=== PATIENT | female | born 1955 | race Two or more races ===

== ENCOUNTER 2019-09-20 10:46 | Emergency (ER) | payer BC ==
[~2019-09-20] VITALS: Ht 160 cm; Wt 55.0 kg
[2019-09-20] MEDS ORDERED: IV NORMAL SALINE 1000ML BAG 1,000 ML IV SCH (11:29)
[2019-09-20] MEDS ORDERED: ONDANSETRON PF 4 MG/2 ML VIAL. IVP ONE (11:30)
[2019-09-20] MEDS ORDERED: FAMOTIDINE 20 MG/2 ML VIAL IVP ONE (11:30)
--- NOTE | 2019-09-20 11:32 | PHYS DOC ---
General Adult EDM: Chief Complaint: FLANK PAIN HPI: HPI: Patient is a 63 year old Israeli-speaking female with history of diabetes mellitus who presents with complaining of left flank pain. History was taken via translating line. Patient complaining of left flank pain for the last 8 days with radiation to left side of abdomen with nausea and some episodes of vomiting without fever and chills, chest pain, shortness of breath, diarrhea and constipation, urinary symptoms, history of the same pain. Patient rated her pain as a moderate pain and states she was seen by her primary care physician and treated with Bentyl and Zofran without improvement of her pain. Review of Systems: Review of Systems: Constitutional: Denies fever or chills. [] Eyes: Denies change in visual acuity. [] HENT: Denies nasal congestion or sore throat. [] Respiratory: Denies cough or shortness of breath. [] Cardiovascular: Denies chest pain or edema. [] GI: Reports abdominal pain, nausea, vomiting, denies bloody stools or diarrhea. [] : Denies dysuria. [] Musculoskeletal: Denies back pain or joint pain. [] Integument: Denies rash. [] Neurologic: Denies headache, focal weakness or sensory changes. [] Endocrine: Denies polyuria or polydipsia. [] Lymphatic: Denies swollen glands. [] Psychiatric: Denies depression or anxiety. [] Heart Score: Risk Factors: Risk Factors: DM, Current or recent (<one month) smoker, HTN, HLP, family history of CAD, obesity. Risk Scores: Score 0 - 3: 2.5% MACE over next 6 weeks - Discharge Home Score 4 - 6: 20.3% MACE over next 6 weeks - Admit for Clinical Observation Score 7 - 10: 72.7% MACE over next 6 weeks - Early Invasive Strategies Physical Exam: PE: Constitutional: Well developed, well nourished, mild distress, non-toxic appearance. [] HENT: Normocephalic, atraumatic. Eyes: PERRLA, EOMI, conjunctiva normal, no discharge. [] Neck: Normal range of motion, no tenderness, supple, no stridor. [] Cardiovascular:Heart rate regular rhythm, no murmur [] Lungs & Thorax: Bilateral breath sounds clear to auscultation [] Abdomen: Bowel sounds normal, soft, no tenderness, no masses, no pulsatile masses. [] Skin: Warm, dry, no erythema, no rash. [] Back: No tenderness, no CVA tenderness. [] Extremities: No tenderness, no cyanosis, no clubbing, ROM intact, no edema. [] Neurologic: Alert and oriented X 3, no focal deficits noted. [] Psychologic: Affect normal, judgement normal, mood normal. [] Current Patient Data: Labs: Laboratory Tests Test 09/20/19 11:00 POC Urine HCG, Qualitative Hcg negative (Negative) EKG: EKG: [] Radiology/Procedures: Radiology/Procedures: [facility] [address] [place], [place] [id number] IMAGING REPORT Signed PATIENT: IVETTE VALDESACCOUNT: [id number] : 1955 LOCATION: ER AGE: 63 SEX: F EXAM STATUS: PRE ER ORD. PHYSICIAN: AMY SANDOVAL MD REASON: Left flank pain PROCEDURE: CT ABDOMEN PELVIS WO CONTRAST Study: CT abdomen/pelvis without intravenous contrast Indication: Left flank pain. Comparison: None. Technique: Helical CT imaging performed of the abdomen and pelvis without the use of intravenous contrast. Sagittal and coronal reformats were obtained. One or more of the following individualized dose reduction techniques were utilized for this examination: 1. Automated exposure control 2. Adjustment of the mA and/or kV according to patient size 3. Use of iterative reconstruction technique. Findings: Inherently limited evaluation without intravenous contrast. Chest: Scattered granulomas. Partially visualized mild calcific coronary artery disease. Liver: Unremarkable. Gallbladder/Biliary Tree: Within normal limits. Pancreas: Within normal limits. Spleen: Within normal limits. Adrenal Glands: Unremarkable. Kidneys/Ureters/Bladder: Edematous prominence of the left kidney relative to the right. Intrarenal stone at the lower pole the left kidney measures at 5.5 mm. There is no hydroureteronephrosis and no stone is seen along the visualized course of the left ureter nor within the urinary bladder. No nephrolithiasis or collecting system dilatation on the right. Low-attenuation focus within internal density of approximately 20 Hounsfield units within the upper cortex of the left kidney, image 68 series 2, measuring approximately 2.1 x 2.3 x 2.0 cm. Circumferential wall thickening of the urinary bladder. Reproductive Organs: No concerning adnexal abnormality. A rounded low-attenuation structure at the upper aspect of the left adnexa on image 161 series 2, is favored small bowel. Colon: Constipated state. Appendix: Normal. Small Bowel: Nonobstructed. Stomach: Unremarkable. Vasculature: Mild calcific atherosclerosis. Nonaneurysmal abdominal aorta. Asymmetric prominence of the left ovarian vein with some fatty stranding around this vessel approaching its insertion with the left renal vein such as seen on image 87 series 2. Lymph Nodes: No pathologically enlarged lymph nodes. Peritoneum and Body Wall: No acute abnormality Bones: Scattered degenerative changes greatest at the L5-S1 level where there is bilateral osseous neural foraminal encroachment. Miscellaneous: None. Impression: 1. Edematous prominence of the left kidney relative to the right. An intrarenal stone is seen at the lower pole the left kidney but there is no obstructing stone seen throughout the collecting system to account for this appearance. Note is made that the urinary bladder wall is circumferentially thickened. The findings could be related to recent passage of a stone or could be secondary to pyelonephritis from an ascending urinary tract infection. No collecting system dilatation on the right. 2. Low-attenuation lesion within the cortex of the upper left kidney measuring up to 2.3 cm. An infected fluid collection is felt unlikely and an indeterminate cyst is favored. Given incomplete characterization, eventual renal sonography is recommended to further assess. 3. Asymmetric prominence of the left ovarian vein. Some haziness of the surrounding fat as the vessel approaches its insertion with the left renal vein is favored related to inflammatory changes involving the adjacent kidney. Ovarian vein thrombosis is not fully excluded but is considered less likely to account for this appearance. 4. Constipation. 5. Additional chronic findings as above. Electronically signed by: AUDREY DEMARCO MD (09/20/2019 12:03 PM) [id number] DICTATED and SIGNED BY: AUDREY DEMARCO MD DATE: 09/20/19 1203 [facility] [address] [place] [address] IMAGING REPORT Signed PATIENT: IVETTE VALDESACCOUNT: [id number] : 1955 LOCATION: ER AGE: 63 SEX: F EXAM STATUS: REG ER ORD. PHYSICIAN: AMY SANDOVAL MD REASON: Abnormal CT/ LT FLANK PAIN X 8DAYS PROCEDURE: RENAL COMPLETE LEFT Left unilateral renal ultrasound History: Low density lesion on left kidney on recent CT Sonographic examination of the left kidney and bladder was performed and multiple static images were obtained. The left kidney is seen with no hydronephrosis and measures 13 cm in length. There is a small nonobstructive stone in the left renal pelvis. There is a 2.4 x 1.9 cm simple cyst arising laterally from the upper pole. Urinary bladder: The urinary bladder appears normal bilateral ureteral jets. Impression: 1. Nonobstructive stone in the left renal pelvis. 2. No hydronephrosis. 3. Simple cyst arising from the upper pole of the left kidney. Electronically signed by: Jose Elias Hager III, MD (09/20/2019 12:55 PM) [id number] DICTATED and SIGNED BY: JOSE ELIAS HAGER III, MD DATE: 09/20/19 1255 Course & Med Decision Making: Course & Med Decision Making Pertinent Labs and Imaging studies reviewed. (See chart for details) Discharge: I've spoken with the patient and/or caregivers. I've explained the patient's condition, diagnosis and treatment plan based on information available to me at this time. I've answered the patient's and/or caregivers questions and addressed any concerns. The patient and/or caregivers have a good understanding the patient's diagnosis, condition and treatment plan as can be expected at this point. Vital signs have been stabilized. The patient's condition is stable for d ischarge from the emergency department. The patient will pursue further outpatient evaluation with her primary care provider or other designated consulting physician as outlined in the discharge instructions. Patient and/or caregivers are agreeable to this plan of care and follow-up instructions have been explained in detail. The patient and/or caregivers have received these instructions in written format and expressed understanding of these discharge instructions. The patient and her caregivers are aware that if any significant change in condition or worsening of symptoms should prompt him to immediately return to this of the closest emergency department. If an emergent department is not readily available I would encourage him to call 911. Gabrielle Disclaimer: Gabrielle Disclaimer: This electronic medical record was generated, in whole or in part, using a voice recognition dictation system. Departure Departure Impression: Primary Impression: Urinary tract infection Qualified Codes: N30.00 - Acute cystitis without hematuria Additional Impressions: Nephrolithiasis Flank pain Uncontrolled diabetes mellitus Qualified Codes: E13.65 - Other specified diabetes mellitus with hyperglycemia Renal cyst Nausea and vomiting Qualified Codes: R11.2 - Nausea with vomiting, unspecified Disposition: HOME, SELF-CARE (At 1330) Condition: IMPROVED Patient Instructions: Diet - 1500 Calorie Diabetic, Diet for Kidney Stones, Flank Pain, Hyperglycemia, Urinary Tract Infection Additional Instructions: Drink plenty of liquids Follow-up with your primary care physician in 3-5 days Return to ER if not getting better Thank you for visiting [facility]. We appreciate you trusting us with your care. If any additional problems come up don't hesitate to return to visit us. Please follow up with your primary care provider so they can plan additional care if needed and know about the problem that you had. If symptoms worsen come back to the Emergency Department. Any concerning symptoms that start such as chest pain, shortness of air, weakness or numbness on one side of the body, running high fevers or any other concerning symptoms return to the ER. Scripts Tramadol Hcl (ULTRAM) 50 Mg Tablet 50 MG PO Q6HRS PRN for PAIN, #14 TAB 0 Refills Prov: AMY SANDOVAL MD 09/20/19 Ondansetron Hcl (ZOFRAN) 4 Mg Tablet 1 TAB PO PRN Q6-8HRS for nausea, #12 TAB Prov: AMY SANDOVAL MD 09/20/19 Cephalexin (KEFLEX) 500 Mg Capsule 1 CAP PO Q8HRS, #21 CAP 0 Refills Prov: AMY SANDOVAL MD 09/20/19 AMY SANDOVAL MD Sep 20, 2019 11:32
[2019-09-20 11:59] LABS: BILIRUBIN,URINE NEGATIVE (NEG); CLARITY,URINE CLOUDY; COLOR,URINE YELLOW; NITRITE,URINE NEGATIVE (NEG); PH,URINE 6.5 (<5.0-8.0); PROTEIN,URINE 30 mg/dL (NEG-TRACE)
[2019-09-20 12:04] LABS: BASO % 0 % (0-3); EOS % 0 % (0-3); HEMATOCRIT 41.3 % (36.0-47.0); HEMOGLOBIN 13.7 g/dL (12.0-15.5); LYMPH # 1.7 x10^3/uL (1.0-4.8); LYMPH % 16 % (24-48); MEAN CORPUSCULAR HEMOGLOBIN 27 pg (25-35); MEAN CORPUSCULAR HGB CONC 33 g/dL (31-37); MEAN CORPUSCULAR VOLUME 81 fL (79-100); MONO # 0.9 x10^3/uL (0.0-1.1); MONO % 8 % (0-9); NEUT # 8.1 x10^3/uL (1.8-7.7); NEUT % 75 % (31-73); PLATELET COUNT 211 x10^3/uL (140-400); RED BLOOD COUNT 5.07 x10^6/uL (3.50-5.40); RED CELL DISTRIBUTION WIDTH 13.4 % (11.5-14.5); WHITE BLOOD COUNT 10.8 x10^3/uL (4.0-11.0)
--- NOTE | 2019-09-20 12:06 | RAD ---
Study: CT abdomen/pelvis without intravenous contrast Indication: Left flank pain. Comparison: None. Technique: Helical CT imaging performed of the abdomen and pelvis without the use of intravenous contrast. Sagittal and coronal reformats were obtained. One or more of the following individualized dose reduction techniques were utilized for this examination: 1. Automated exposure control 2. Adjustment of the mA and/or kV according to patient size 3. Use of iterative reconstruction technique. Findings: Inherently limited evaluation without intravenous contrast. Chest: Scattered granulomas. Partially visualized mild calcific coronary artery disease. Liver: Unremarkable. Gallbladder/Biliary Tree: Within normal limits. Pancreas: Within normal limits. Spleen: Within normal limits. Adrenal Glands: Unremarkable. Kidneys/Ureters/Bladder: Edematous prominence of the left kidney relative to the right. Intrarenal stone at the lower pole the left kidney measures at 5.5 mm. There is no hydroureteronephrosis and no stone is seen along the visualized course of the left ureter nor within the urinary bladder. No nephrolithiasis or collecting system dilatation on the right. Low-attenuation focus within internal density of approximately 20 Hounsfield units within the upper cortex of the left kidney, image 68 series 2, measuring approximately 2.1 x 2.3 x 2.0 cm. Circumferential wall thickening of the urinary bladder. Reproductive Organs: No concerning adnexal abnormality. A rounded low-attenuation structure at the upper aspect of the left adnexa on image 161 series 2, is favored small bowel. Colon: Constipated state. Appendix: Normal. Small Bowel: Nonobstructed. Stomach: Unremarkable. Vasculature: Mild calcific atherosclerosis. Nonaneurysmal abdominal aorta. Asymmetric prominence of the left ovarian vein with some fatty stranding around this vessel approaching its insertion with the left renal vein such as seen on image 87 series 2. Lymph Nodes: No pathologically enlarged lymph nodes. Peritoneum and Body Wall: No acute abnormality Bones: Scattered degenerative changes greatest at the L5-S1 level where there is bilateral osseous neural foraminal encroachment. Miscellaneous: None. Impression: 1. Edematous prominence of the left kidney relative to the right. An intrarenal stone is seen at the lower pole the left kidney but there is no obstructing stone seen throughout the collecting system to account for this appearance. Note is made that the urinary bladder wall is circumferentially thickened. The findings could be related to recent passage of a stone or could be secondary to pyelonephritis from an ascending urinary tract infection. No collecting system dilatation on the right. 2. Low-attenuation lesion within the cortex of the upper left kidney measuring up to 2.3 cm. An infected fluid collection is felt unlikely and an indeterminate cyst is favored. Given incomplete characterization, eventual renal sonography is recommended to further assess. 3. Asymmetric prominence of the left ovarian vein. Some haziness of the surrounding fat as the vessel approaches its insertion with the left renal vein is favored related to inflammatory changes involving the adjacent kidney. Ovarian vein thrombosis is not fully excluded but is considered less likely to account for this appearance. 4. Constipation. 5. Additional chronic findings as above. Electronically signed by: AUDREY DEMARCO MD (09/20/2019 12:03 PM) [id number]
[2019-09-20 12:12] LABS: BACTERIA,URINE MANY /HPF (0-FEW); WBC,URINE >40 /HPF (0-4)
[2019-09-20 12:13] LABS: SQUAMOUS EPITHELIAL CELL,UR MANY /LPF
[2019-09-20 12:28] LABS: CALCIUM 9.2 mg/dL (8.5-10.1); CREATININE 0.7 mg/dL (0.6-1.0); GFR 85.1; POTASSIUM 3.9 mmol/L (3.5-5.1)
[2019-09-20 12:34] LABS: ALBUMIN 2.6 g/dL (3.4-5.0); ALBUMIN/GLOBULIN RATIO 0.5 (1.0-1.7); TOTAL BILIRUBIN 0.6 mg/dL (0.2-1.0); TOTAL PROTEIN 7.4 g/dL (6.4-8.2)
--- NOTE | 2019-09-20 12:58 | RAD ---
Left unilateral renal ultrasound History: Low density lesion on left kidney on recent CT Sonographic examination of the left kidney and bladder was performed and multiple static images were obtained. The left kidney is seen with no hydronephrosis and measures 13 cm in length. There is a small nonobstructive stone in the left renal pelvis. There is a 2.4 x 1.9 cm simple cyst arising laterally from the upper pole. Urinary bladder: The urinary bladder appears normal bilateral ureteral jets. Impression: 1. Nonobstructive stone in the left renal pelvis. 2. No hydronephrosis. 3. Simple cyst arising from the upper pole of the left kidney. Electronically signed by: Ric Boucher III, MD (09/20/2019 12:55 PM) [id number]
[2019-09-20 13:21] VITALS: BP 160/74
[2019-09-20] MEDS ORDERED: CEPH-264 PO (13:23)
[2019-09-20] MEDS ORDERED: TRAM-48 PO (13:23)
[2019-09-20] MEDS ORDERED: ONDA4TAB7 PO (13:23)
[2019-09-20] MEDS ORDERED: cefTRIAXone IV Push 1 GM VIAL. IVP ONE (13:30)
== END 2019-09-20 13:53 | disposition home or self-care (01) ==
LOC: ER 10:46
DX: N30.00 Acute cystitis without hematuria (principal); R11.2 Nausea with vomiting, unspecified; R60.0 Localized edema; E13.65 Other specified diabetes mellitus with hyperglycemia
CPT/HCPCS: 36415; 74176; 76775; 80053; 81001; 81025; 83690; 85025; 87086; 96361; 96374; 96375; 99285; J0696; J2405; J3490; J7030